=== PATIENT | male | born 1960 | race African-American/Black ===

== ENCOUNTER 2024-11-14 11:11 | Inpatient (IN) | payer OTHER ==
[2024-11-14 11:23] VITALS: BMI 22.3
[2024-11-14 13:12] LABS: HEMATOCRIT 27.1 % (35.4-49); HEMOGLOBIN 8.9 GM/dL (11.7-16.9); MCH 31.7 pg (25.7-33.7); MCHC 32.8 g/dl (32.0-35.9); MEAN CELL VOLUME 96.9 fl (80-96); MEAN PLT VOLUME 7.1 fl (7.5-11.1); PLATELET COUNT 62 10^3/uL (134-434); RDW 21.6 % (11.9-15.9); WHITE BLOOD COUNT 5.3 K/mm3 (4.0-10.0)
[2024-11-14] MEDS ORDERED: ALBUTEROL SO4 2.5/IPRATROPIUM 0.5 INH SOL 3 ML VIAL.NEB. NEB ONE (13:14)
[2024-11-14] MEDS: ALBUTEROL SO4 2.5/IPRATROPIUM 0.5 INH SOL 3 ML VIAL.NEB. NEB ONE (13:19)
[2024-11-14 13:22] LABS: INR 1.23 (0.83-1.09); PROTHROMBIN TIME (PATIENT) 13.8 SEC (9.7-13.0)
[2024-11-14 13:24] LABS: ACTIVATED PTT 27.9 SECONDS (25.2-36.5)
[2024-11-14 13:41] LABS: POTASSIUM 4.4 mmol/L (3.5-5.1)
[2024-11-14 13:43] LABS: ALBUMIN 2.8 g/dl (3.4-5.0); BLOOD UREA NITROGEN 20.7 mg/dL (7-18); CALCIUM 8.3 mg/dL (8.5-10.1)
[2024-11-14 13:46] LABS: CREATININE 2.4 mg/dL (0.55-1.3)
[2024-11-14 13:48] LABS: BILIRUBIN,TOTAL 0.4 mg/dL (0.2-1); TOT PROT 6.3 g/dl (6.4-8.2)
[2024-11-14 14:22] LABS: ANISOCYTOSIS 2+; MACROCYTOSIS 0
[2024-11-14] MEDS ORDERED: AZITHROMYCIN IVPB 500 MG/250 ML BAG IVPB ONE (14:26)
[2024-11-14] MEDS ORDERED: cefTRIAXone SODIUM 1 GM VIAL ONE (14:26)
[2024-11-14] MEDS ORDERED: CEFTRIAXONE 1 G/50 ML PREMIX 50 ML IVPB ONE (14:30)
[2024-11-14] MEDS: CEFTRIAXONE 1 GM in DEXTROSE 5%-WATER - 100 ML IVPB ONE (14:38)
[2024-11-14] MEDS: AZITHROMYCIN IVPB 500 MG in DEXTROSE 5%-WATER - 250 ML IVPB ONE (15:35)
[2024-11-14] MEDS ORDERED: guaiFENesin/D-METHORPHAN HB 10 ML UNIT-DOSE CUPS ONE (23:06)
[2024-11-14] MEDS: guaiFENesin 200 MG/10 ML 10 ML UNIT-DOSE CUPS PO PRN (23:15)
[2024-11-15 02:09] LABS: EPI CELLS 6 /uL (0-25.1); HYALINE CASTS 0 /uL (0-3.1); PH,URINE 5.5 (5.0-8.0); URINE APPEARANCE CLEAR; URINE BACTERIA 2 /uL (0-1359); URINE BILIRUBIN NEGATIVE (NEGATIVE); URINE COLOR YELLOW; URINE GLUCOSE (UA) NEGATIVE (NEGATIVE); URINE KETONE NEGATIVE (NEGATIVE); URINE LEUK ESTERASE NEGATIVE (NEGATIVE); URINE NITRITE NEGATIVE (NEGATIVE); URINE PROTEIN 2+ (NEGATIVE); URINE RBC 36 /uL (0-23.9); URINE UROBILINOGEN 0.2 mg/dL (0.2-1.0); URINE WBC 5 /uL (0-25.8)
[2024-11-15] MEDS ORDERED: guaiFENesin/D-METHORPHAN HB 10 ML UNIT-DOSE CUPS ONE ×2 (04:17→08:00)
[2024-11-15 06:01] LABS: HEMATOCRIT 22.6 % (35.4-49); HEMOGLOBIN 7.5 GM/dL (11.7-16.9); MCH 32.3 pg (25.7-33.7); MCHC 33.1 g/dl (32.0-35.9); MEAN CELL VOLUME 97.4 fl (80-96); RBC 2.33 M/mm3 (4.00-5.60); RDW 21.8 % (11.9-15.9); WHITE BLOOD COUNT 6.2 K/mm3 (4.0-10.0)
[2024-11-15 06:04] LABS: ADD RBC MORPHOLOGY YES
[2024-11-15 06:23] LABS: POTASSIUM 3.9 mmol/L (3.5-5.1)
[2024-11-15 06:25] LABS: CALCIUM 8.1 mg/dL (8.5-10.1)
[2024-11-15 06:26] LABS: BLOOD UREA NITROGEN 22.3 mg/dL (7-18)
[2024-11-15 06:29] LABS: CREATININE 2.5 mg/dL (0.55-1.3)
[2024-11-15] MEDS ORDERED: CEFTRIAXONE 1 G/50 ML PREMIX 50 ML IVPB ONE (07:30)
[2024-11-15] MEDS ORDERED: MAGNESIUM OXIDE 400 MG TABLET (FP) ONE (07:32)
[2024-11-15] MEDS ORDERED: PANTOPRAZOLE 20 MG TABLET PO ONE (07:32)
[2024-11-15] MEDS ORDERED: AZITHROMYCIN IVPB 500 MG/250 ML BAG IVPB ONE (07:32)
[2024-11-15] MEDS: ACYCLOVIR 400 MG TABLET PO SCH (09:02)
[2024-11-15] MEDS: PANTOPRAZOLE 20 MG TABLET PO SCH (09:02)
[2024-11-15] MEDS: RIVAROXABAN 10 MG TABLET PO SCH (09:02)
[2024-11-15] MEDS: AZITHROMYCIN IVPB 500 MG/250 ML BAG IVPB SCH (09:02)
[2024-11-15] MEDS: MAGNESIUM OXIDE 400 MG TABLET (FP) PO SCH (09:02)
[2024-11-15] MEDS: CEFTRIAXONE 1 G/50 ML PREMIX 50 ML IVPB SCH (09:02)
[2024-11-15 10:29] LABS: ANISOCYTOSIS 0; MACROCYTOSIS 0
[2024-11-15 10:30] LABS: MEAN PLT VOLUME 7.3 fl (7.5-11.1); PLATELET COUNT 55 10^3/uL (134-434)
[2024-11-15] MEDS: SODIUM CHLORIDE 1,000 ML IV SCH ×2 (14:48→17:19)
[2024-11-16 09:09] LABS: HEMATOCRIT 22.5 % (35.4-49); HEMOGLOBIN 7.5 GM/dL (11.7-16.9); MCH 32.2 pg (25.7-33.7); MCHC 33.2 g/dl (32.0-35.9); MEAN CELL VOLUME 96.8 fl (80-96); MEAN PLT VOLUME 7.7 fl (7.5-11.1); PLATELET COUNT 69 10^3/uL (134-434); RBC 2.33 M/mm3 (4.00-5.60); RDW 21.6 % (11.9-15.9); WHITE BLOOD COUNT 6.3 K/mm3 (4.0-10.0)
[2024-11-16 09:31] LABS: POTASSIUM 3.7 mmol/L (3.5-5.1)
[2024-11-16 09:44] LABS: ALBUMIN 2.4 g/dl (3.4-5.0); BLOOD UREA NITROGEN 19.8 mg/dL (7-18); MAGNESIUM 1.7 mg/dL (1.8-2.4)
[2024-11-16 09:47] LABS: CREATININE 2.5 mg/dL (0.55-1.3)
[2024-11-16 09:48] LABS: BILIRUBIN,TOTAL 0.3 mg/dL (0.2-1); TOT PROT 5.3 g/dl (6.4-8.2)
[2024-11-16] MEDS: ALBUTEROL SO4 2.5/IPRATROPIUM 0.5 INH SOL 3 ML VIAL.NEB. NEB PRN (11:51)
[2024-11-16 16:52] VITALS: RESP 20
[2024-11-16] MEDS: MAGNESIUM OXIDE 400 MG TABLET (FP) PO SCH (16:52)
[2024-11-17 09:28] LABS: HEMATOCRIT 21.7 % (35.4-49); HEMOGLOBIN 7.2 GM/dL (11.7-16.9); MCH 31.9 pg (25.7-33.7); MEAN CELL VOLUME 96.5 fl (80-96); MEAN PLT VOLUME 7.3 fl (7.5-11.1); PLATELET COUNT 73 10^3/uL (134-434); RBC 2.24 M/mm3 (4.00-5.60); RDW 21.7 % (11.9-15.9); WHITE BLOOD COUNT 6.2 K/mm3 (4.0-10.0)
[2024-11-17 09:44] LABS: POTASSIUM 3.7 mmol/L (3.5-5.1)
[2024-11-17 09:48] LABS: CALCIUM 8.1 mg/dL (8.5-10.1)
[2024-11-17 09:49] LABS: ALBUMIN 2.3 g/dl (3.4-5.0); BLOOD UREA NITROGEN 16.7 mg/dL (7-18); MAGNESIUM 1.8 mg/dL (1.8-2.4)
[2024-11-17 09:52] LABS: CREATININE 2.3 mg/dL (0.55-1.3)
[2024-11-17 09:53] LABS: BILIRUBIN,TOTAL 0.3 mg/dL (0.2-1)
[2024-11-17 09:54] LABS: TOT PROT 5.3 g/dl (6.4-8.2)
[2024-11-17] MEDS: LOPERAMIDE HCL 2 MG CAPSULE PO PRN (18:38)
[2024-11-18 10:09] LABS: HEMATOCRIT 21.8 % (35.4-49); HEMOGLOBIN 7.3 GM/dL (11.7-16.9); MCH 32.2 pg (25.7-33.7); MCHC 33.5 g/dl (32.0-35.9); MEAN CELL VOLUME 96.1 fl (80-96); MEAN PLT VOLUME 6.7 fl (7.5-11.1); PLATELET COUNT 69 10^3/uL (134-434); RBC 2.27 M/mm3 (4.00-5.60); RDW 21.2 % (11.9-15.9); WHITE BLOOD COUNT 7.9 K/mm3 (4.0-10.0)
[2024-11-18 10:27] LABS: CALCIUM 8.3 mg/dL (8.5-10.1)
[2024-11-18 10:28] LABS: ALBUMIN 2.5 g/dl (3.4-5.0); BLOOD UREA NITROGEN 13.6 mg/dL (7-18); MAGNESIUM 1.8 mg/dL (1.8-2.4)
[2024-11-18 10:31] LABS: CREATININE 2.3 mg/dL (0.55-1.3)
[2024-11-18 10:32] LABS: BILIRUBIN,TOTAL 0.2 mg/dL (0.2-1)
[2024-11-18 10:33] LABS: TOT PROT 5.5 g/dl (6.4-8.2)
[2024-11-18] MEDS: MAGNESIUM OXIDE 400 MG TABLET (FP) PO SCH (10:37)
[2024-11-18 11:14] LABS: ANISOCYTOSIS 1+; MACROCYTOSIS 1+
[2024-11-18] MEDS: RIVAROXABAN 10 MG TABLET PO SCH (17:38)
[2024-11-19 10:06] VITALS: BP 141/71; TEMP 98.1
[2024-11-19 10:25] VITALS: PULSE 118
[2024-11-19] MEDS ORDERED: AMOX TR/POT CLAV 875MG/125MG TABLETS (FP) PO SCH (17:30)
== END 2024-11-19 13:40 | disposition home or self-care (01) | DRG 871 ==
LOC: JER 11:11 → JERBED 15:35 → OBSVTOIN 16:46 → J8W 11-15 12:41
PROVIDERS: ADMIT Internal Medicine; ATTEND Nurse Practitioner Acute Care
DX: A41.9 Sepsis, unspecified organism (principal); J12.1 Respiratory syncytial virus pneumonia; C90.00 Multiple myeloma not having achieved remission; E46 Unspecified protein-calorie malnutrition; D84.9 Immunodeficiency, unspecified; Z59.00 Homelessness unspecified; N17.9 Acute kidney failure, unspecified; N18.9 Chronic kidney disease, unspecified; Z68.22 Body mass index [BMI] 22.0-22.9, adult
CPT/HCPCS: 0241U-QW; 36415; 71045-TC-FY; 71046-TC-FY; 71250-TC; 80048; 80053; 81003; 82272; 83605; 83735; 83880; 85025; 85045; 85610; 85730; 87040; 87070; 87086; 87205; 87899; 93005; 93010; 94640; 94761; 99285-25; G0378